=== PATIENT | female | born 1980 | race Caucasian/White ===

== ENCOUNTER 2017-07-29 14:13 | Outpatient (CLI) | payer OTHER ==
--- NOTE | 2017-07-29 18:56 | Mammography Report ---
DIGITAL DIAGNOSTIC BILATERAL MAMMOGRAM: 07/29/2017 CLINICAL INDICATION: Palpable abnormality left upper-outer quadrant. TECHNIQUE: Bilateral CC, laterally exaggerated CC, MLO views, left true lateral view. A marker was placed at the site of palpable abnormality identified by the patient in the left upper-outer quadrant . This is the patient's baseline examination. The breasts demonstrate extremely dense parenchyma bilaterally, limiting the sensitivity of mammograp hy. No suspicious masses, clustered microcalcifications, or regions of architectural distortion are identified. Specifically, no mammographic abnormality is appreciated at the site of the marker in th e left upper-outer quadrant. Please also refer to left breast ultrasound of the same day. IMPRESSION: NEGATIVE EXAMINATION. RECOMMENDATION: ROUTINE ANNUAL SCREENING, TO COMMENCE AT AGE 40, UNLESS OTHERWISE CLINICALLY INDICAT ED. BIRADS CATEGORY: 1, NEGATIVE. STANDARD QUALIFYING STATEMENTS 1. This examination was reviewed with the aid of Computed-Aided Detection (CAD). 2. A negative or benign imaging report should not delay biopsy if clinically suspicious findings are present. Consider surgical consultation if warranted. More than 5% of cancers are not identified b y imaging. 3. Dense breasts may obscure an underlying neoplasm. JOB #: [id number] EXT JOB #:[id number]
--- NOTE | 2017-07-30 10:06 | Ultrasound Report ---
LEFT BREAST ULTRASOUND: 07/29/2017 CLINICAL INDICATION: Palpable abnormality left upper outer quadrant. TECHNIQUE: Real-time scanning was performed with self pay representative static images obtained. FINDINGS: Ultrasound of the palpable region identified by the patient was performed. Unremarkable f ibroglandular parenchyma is seen. No discrete solid or cystic mass is identified. No sonographicall y suspicious findings are present. IMPRESSION: NEGATIVE EXAMINATION. RECOMMENDATION: Routine annual screening, to commence at age 40, unless otherwise clinically indicat ed. BI-RADS category 1, negative. JOB #: [id number] EXT JOB #:[id number]
== END 2017-07-29 14:14 | disposition home or self-care (01) ==
LOC: DI 14:13
PROVIDERS: ATTEND Physician Assistant Medical
DX: N63.21 Unspecified lump in the left breast, upper outer quadrant (principal)
CPT/HCPCS: 76642; 77066

== ENCOUNTER 2019-12-22 20:33 | Emergency (ER) | payer OTHER ==
--- NOTE | 2019-12-22 21:57 | ED Physician Documentation ---
History of Present Illness - Stated complaint Stated Complaint: HEADACHE, FATIGUE - Chief complaint Chief Complaint: General - History obtained from History obtained from: Patient (The patient is an otherwise very healthy 39-year-old female who recently traveled to [facility] and reports that 1 of the coworkers in that area tested positive for covid 19 and the patient is requesting to be tested for COVID 19. The patient is complaining of mild headache mild sore throat she did take a dose of antipyretics prior to arrival she denies any recent travel outside the country in the last 14 days. Denies severe headache neck pain or rashes.The patient reports she is otherwise healthy and up-to-date on all her immunizations she denies any history of cancer or chronic medical conditions or taking any chronic immunosuppressants.) Review of Systems Constitutional: reports: Myalgias Eyes: reports: Reviewed and negative Ears: reports: Reviewed and negative Nose: reports: Reviewed and negative Throat: reports: Sore throat Cardiac: reports: Reviewed and negative Respiratory: reports: Reviewed and negative GI: reports: Reviewed and negative : reports: Reviewed and negative Skin: reports: Reviewed and negative Musculoskeletal: reports: Reviewed and negative Neurologic: reports: Reviewed and negative Psychiatric: reports: Reviewed and negative Endocrine: reports: Reviewed and negative Immunocompromised: reports: Reviewed and negative PD PAST MEDICAL HISTORY - Past Medical History Past Medical History: Yes Cardiovascular: None Respiratory: Asthma Neuro: None Endocrine/Autoimmune: None GI: None MATE CHIEF: None : None HEENT: None Psych: None Musculoskeletal: None Derm: None - Past Surgical History Past Surgical History: No - Allergies Allergies/Adverse Reactions: Allergies Allergy/AdvReac Type Severity Reaction Status Date / Time No Known Drug Allergies Allergy Verified 12/22/19 20:36 - Social History Does the pt smoke?: No Smoking Status: Never smoker Does the pt drink ETOH?: Yes Does the pt have substance abuse?: No - Immunizations Immunizations are current?: Yes - POLST Patient has POLST: No PD ED PE NORMAL - Vitals Vital signs reviewed: Yes - General General: Alert and oriented X 3, No acute distress, Well developed/nourished - HEENT HEENT: Atraumatic, PERRL, EOMI, Ears normal, Moist mucous membranes, Pharynx benign, Dentition benign - Neck Neck: Supple, no meningeal sign, No adenopathy, No JVD, No bruit - Cardiac Cardiac: RRR, No murmur, Strong equal pulses - Respiratory Respiratory: No respiratory distress, Clear bilaterally - Abdomen Abdomen: Normal bowel sounds, Soft, Non tender, Non distended, No organomegaly - Back Back: No CVA TTP, No spinal TTP - Derm Derm: Normal color, Warm and dry, No rash - Extremities Extremities: No deformity, No tenderness to palpate, Normal ROM s pain, No edema, No calf tenderness / cord - Neuro Neuro: Alert and oriented X 3, cork compounder 2-12 intact, No motor deficit, No sensory deficit, Normal speech - Psych Psych: Normal mood, Normal affect Results - Vitals Vitals: Vital Signs - 24 hr 12/22/19 20:36 Temperature 36.7 C Heart Rate 75 Respiratory 14 Rate Blood Pressure 109/84 H O2 Saturation 99 Oxygen O2 Source Room air PD MEDICAL DECISION MAKING - ED course Complexity details: other (Patient with recent contact exposure with a coworker who tested positive for covid 19. will send MANAGER OF SELECTION AND ASSESSMENT/OP swabs to the [facility] and f/u w pcp tomorrow.) Departure - Departure Disposition: 01 Home, Self Care Clinical Impression: Viral syndrome Condition: Good Instructions: ED Viral Syndrome Follow-Up: Angelica Mcnamara PA-C [Primary Care Provider] - Tomorrow
[2019-12-22 22:32] VITALS: BP 132/70
== END 2019-12-22 22:36 | disposition home or self-care (01) ==
LOC: ED 20:33
DX: B34.9 Viral infection, unspecified (principal); Z20.828 Contact with and (suspected) exposure to other viral communicable diseases
CPT/HCPCS: 81599; 99282; 99283

== ENCOUNTER 2021-12-10 11:36 | Outpatient (CLI) | payer OTHER ==
--- NOTE | 2021-12-12 12:08 | Mammography Report ---
BILATERAL DIGITAL SCREENING MAMMOGRAM 3D/2D: 12/10/2021 CLINICAL: Routine screening. Comparison is made to exams dated: 07/29/2017 mammogram and 07/29/2017 ultrasound - [facility]. The tissue of both breasts is extremely dense, which lowers the sensitivity of mammogr aphy. No significant masses, calcifications, or other findings are seen in either breast. There has been no significant interval change. IMPRESSION: NEGATIVE There is no mammographic evidence of malignancy. A 1 year screening mammogram is recommended. This exam was interpreted at Station ID: [id number]. NOTE: For mammograms, a report in lay terms will be sent to the patient. Approximately 15% of breast malignancies will not be visualized mammographically. In the management of a palpable breast mass, a negative mammogram must not discourage biopsy of a clinically suspicious lesion. Electronically Signed By: Cosme Srivastava M.D. ar/man:12/11/2021 09:37:48 ACR BI-RADS Category 1: Negative 3341F PARENCHYMAL PATTERN: (VD) - The breast(s) demonstrate(s) extremely dense parenchyma, limiting the sen sitivity of mammography. BI-RADS CATEGORY: (1) - 1 RECOMMENDATION: (ANNUAL) - Recommend routine annual screening mammography. 20221211 1 year screening LATERALITY: (B)
== END 2021-12-10 11:37 | disposition home or self-care (01) ==
LOC: DI.N 11:36
PROVIDERS: ATTEND Nurse Practitioner
DX: Z12.31 Encounter for screening mammogram for malignant neoplasm of breast (principal)

== ENCOUNTER 2021-12-10 11:50 | Outpatient (CLI) | payer OTHER ==
[2021-12-10 17:50] LABS: BASOPHILS # (AUTO) 0.1 10^3/uL (0.0-0.1); BASOPHILS % (AUTO) 0.6 %; EOSINOPHILS # (AUTO) 0.1 10^3/uL (0.0-0.7); EOSINOPHILS % (AUTO) 1.8 %; HCT - HEMATOCRIT 41.3 % (37.0-47.0); HGB - HEMOGLOBIN 13.6 g/dL (12.0-16.0); LYMPHOCYTES # (AUTO) 1.6 10^3/uL (1.5-3.5); LYMPHOCYTES % (AUTO) 20.1 %; MEAN CORPUSCULAR HEMOGLOBIN 28.4 pg (27.0-31.0); MEAN CORPUSCULAR HGB CONC 32.9 g/dL (32.0-36.0); MEAN CORPUSCULAR VOLUME 86.2 fL (81.0-99.0); MEAN PLATELET VOLUME 12.3 fL (7.9-10.8); MONOCYTES # (AUTO) 0.5 10^3/uL (0.0-1.0); MONOCYTES % (AUTO) 6.4 %; NEUTROPHILS # (AUTO) 5.5 10^3/uL (1.5-6.6); NEUTROPHILS % (AUTO) 70.8 %; PLT - PLATELET COUNT 240 10^3/uL (130-450); RED BLOOD COUNT 4.79 10^6/uL (4.20-5.40); RED CELL DISTRIBUTION WIDTH 12.7 % (12.0-15.0); WHITE BLOOD COUNT 7.8 x10^3/uL (4.8-10.8)
[2021-12-10 18:25] LABS: ALBUMIN 5.1 g/dL (3.2-5.5); ALKALINE PHOSPHATASE 42 IU/L (42-121); ALT ALANINE AMINOTRANSFERASE 14 IU/L (10-60); AST ASPARTATE AMINOTRANSFERASE 16 IU/L (10-42); BILIRUBIN,TOTAL 1.6 mg/dL (0.2-1.0); BUN - BLOOD UREA NITROGEN 17 mg/dL (6-20); CALCIUM 9.6 mg/dL (8.5-10.3); CARBON DIOXIDE - CO2 27 mmol/L (21-32); CHLORIDE 100 mmol/L (101-111); CHOL/HDL RATIO 2.5 (<4.4); CHOLESTEROL 209 mg/dL; CREATININE 0.7 mg/dL (0.4-1.0); GFR - MDRD 92 (>89); GLUCOSE 95 mg/dL (70-100); HDL CHOLESTEROL 85 mg/dL; LDL CHOLESTEROL,CALCULATED 99 mg/dL; LDL/HDL RATIO 1.2 (<4.4); POTASSIUM 3.9 mmol/L (3.5-5.0); SODIUM 137 mmol/L (135-145); TOTAL PROTEIN 7.7 g/dL (6.7-8.2); TRIGLYCERIDES 125 mg/dL; VLDL CHOLESTEROL 25 mg/dL
[2021-12-10 18:27] LABS: THYROID STIMULATING HORMONE 1.2 uIU/mL (0.34-5.60)
== END 2021-12-10 11:51 | disposition home or self-care (01) ==
LOC: LAB.N 11:50
PROVIDERS: ATTEND Nurse Practitioner
DX: R53.83 Other fatigue (principal); Z13.220 Encounter for screening for lipoid disorders
CPT/HCPCS: 36415; 80053; 80061; 83721; 84443; 85025